=== PATIENT | male | born 1940 | race Caucasian/White ===

== ENCOUNTER → 2017-01-22 | Outpatient (CLI) | payer MEDICARE ==
--- NOTE | 2017-01-23 09:01 | XR ---
EXAMINATION TYPE: XR chest 2V DATE OF EXAM: 01/22/2017 9:44 AM COMPARISON: Prior chest x-ray 14 July 2014 HISTORY: Cough and congestion TECHNIQUE: Frontal and lateral views of the chest are obtained. FINDINGS: There is no pleural effusion, or pneumothorax seen. The cardiac silhouette size is within normal limits. Minimal strand-like densities at the lung bases are again noted and may reflect scar ring rather than atelectasis. There is some patchy increased density at the posterior costophrenic an gle, possibly right lower lobe. Prominent lung volumes suggests underlying COPD. The osseous structur es are intact. IMPRESSION: Findings suggest right lower lobe pneumonia. Follow-up to resolution.
== END | disposition home or self-care (01) ==
LOC: RADXRYALE 09:32
PROVIDERS: ATTEND Internal Medicine
DX: R05 Cough (principal)
CPT/HCPCS: 71020

== ENCOUNTER → 2023-03-12 | Outpatient (CLI) | payer MEDICARE ==
--- NOTE | 2023-03-14 09:36 | MR ---
EXAMINATION TYPE: MR Prostate wo/w con DATE OF EXAM: 03/12/2023 9:54 AM COMPARISON: None. CLINICAL INDICATION:Male, 82 years old with history of R97.20 ELEVATED PSA; TECHNIQUE: Multi-planar, multi-sequence imaging of the pelvis is performed prior to and following the uncomplicated administration of bolus intravenous gadolinium. CONTRAST: 8.5 Gadavist Interpretive Criteria: PI-RADS v2.1 SERUM PSA: 8.9 on 02/04/2023. 2.57 on 12/24/2022. SURGICAL PATHOLOGY: No data available. FINDINGS: Prostatic dimensions: 6.3 x 5.5 x 5.3 cm. Ellipsoid Volume:96.16 (PSA density=0.09 ng/mL/mL) CENTRAL GLAND (Central and Transition Zones/CZ+TZ): Multiple bilateral, heterogenous appearing hypertrophic stromal nodules, without suspicious lesion. M edian lobe hypertrophy with protrusion into the base of the bladder. (PI-RADS 2) PERIPHERAL ZONE (PZ): Limited evaluation of the posterior prostate gland on diffusion-weighted imaging secondary to gas wit hin the rectum. Atrophic and thin peripheral gland secondary to hypertrophic central gland. No eviden ce of masslike abnormality, or localized perfusional hypervascularity, to further suggest a focus of clinically significant prostate cancer. (PI-RADS 2) SEMINAL VESICLES (SV): Symmetric and unremarkable. PERIPROSTATIC TISSUES: Unremarkable. LYMPH NODES: No enlarged pelvic lymph node. REMAINING PELVIS: Trabeculated bladder wall likely secondary to chronic bladder outlet obstruction. No abnormal free or organized intrapelvic fluid collection. No pathologic bowel dilation or mural thickening. Left fat-containing inguinal hernia. Clonic diverticula are seen in the sigmoid colon. OSSEOUS STRUCTURES: No suspicious osseous abnormality. IMPRESSION: 1. No specific features for high-risk prostate cancer. Maximum PI-RADS score: 2. 2. Substantial BPH, estimated gland volume 96.16 mL.
== END | disposition home or self-care (01) ==
LOC: RADMRIMAIN 08:33
PROVIDERS: ATTEND Urology
DX: N40.0 Benign prostatic hyperplasia without lower urinary tract symptoms (principal); R97.20 Elevated prostate specific antigen [PSA]
CPT/HCPCS: 72197; A9585

== ENCOUNTER → 2024-01-04 | Outpatient (CLI) | payer MEDICARE | END | disposition home or self-care (01) | LOC: LABWHC1 15:35 | PROVIDERS: ATTEND Internal Medicine | DX: E83.52 Hypercalcemia (principal) | CPT/HCPCS: 36415; 82330; 83970 ==

== ENCOUNTER 2025-05-05 09:50 | Observation (INO) | payer MEDICARE ==
--- NOTE | 2025-05-05 10:21 | ED ---
General Adult HPI - General Chief complaint: Neuro Symptoms/Deficit Stated complaint: face drooping Time Seen by Provider: 05/05/25 10:04 Source: patient, family, RN notes reviewed Mode of arrival: ambulatory Limitations: no limitations - History of Present Illness Initial comments: Patient is an 84-year-old male present to the emergency department with concern for left-sided weakness. Patient was already awake when symptoms started. Onset of symptoms was around 815. Patient had left-sided face and arm weakness. Patient did stumble a little bit with presumed left leg weakness. Patient did seem a little bit confused. Symptom resolved and under 30 minutes and patient is symptom-free at this time. No headache. Patient denies confusion. - Related Data Home Medications Medication Instructions Recorded Confirmed Aspirin 81 mg PO DAILY 07/14/14 05/05/25 Losartan/Hydrochlorothiazide 1 tab PO DAILY 07/14/14 05/05/25 [Losartan-Hctz 100-25 mg Tab] Multivitamin/Iron/Folic Acid 1 tab PO DAILY 07/14/14 05/05/25 [Centrum Complete Multivit Tab] Simvastatin [Zocor] 40 mg PO HS 07/14/14 05/05/25 Fish Oil/Dha/Epa [Fish Oil 1,200 1 cap PO BID 05/05/25 05/05/25 mg Fish Oil] Glucosam/Chond/Hyalu/Cf Borate 1 tab PO BID 05/05/25 05/05/25 [Move Free Joint Health Tablet] Naproxen Sodium [Aleve] 220 mg PO DAILY 05/05/25 05/05/25 Allergies Allergy/AdvReac Type Severity Reaction Status Date / Time bacitracin Allergy Rash/Hives Verified 05/05/25 12:00 [From Neosporin ([id number])] Iodinated Contrast Media Allergy Unknown Verified 05/05/25 12:00 iodine Allergy Unknown Verified 05/05/25 12:00 neomycin Allergy Rash/Hives Verified 05/05/25 12:00 [From Neosporin ([id number])] polymyxin B Allergy Rash/Hives Verified 05/05/25 12:00 [From Neosporin ([id number])] Review of Systems ROS Statement: Those systems with pertinent positive or pertinent negative responses have been documented in the HPI. ROS Other: All systems not noted in ROS Statement are negative. Constitutional: Denies: fever Eyes: Denies: eye pain ENT: Denies: ear pain Respiratory: Denies: dyspnea Cardiovascular: Denies: chest pain Endocrine: Denies: fatigue Gastrointestinal: Denies: abdominal pain Musculoskeletal: Denies: back pain Neurological: Reports: as per HPI, weakness, confusion. 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 History of Any Multi-Drug Resistant Organisms: None Reported Past Surgical History: Hernia Repair Past Anesthesia/Blood Transfusion Reactions: No Reported Reaction Past Psychological History: No Psychological Hx Reported Smoking Status: Current every day smoker Past Alcohol Use History: Rare Past Drug Use History: None Reported - Past Family History Father Family Medical History: CVA/TIA Additional Family Medical History / Comment(s): AT AGE 88- STROKE Mother Family Medical History: Diabetes Mellitus, Hypertension, Myocardial Infarction ([place]) Additional Family Medical History / Comment(s): AT AGE 99- CARDIAC General Exam Limitations: no limitations General appearance: alert, in no apparent distress Head exam: Present: atraumatic, normocephalic Eye exam: Present: normal appearance, PERRL, EOMI ENT exam: Present: normal oropharynx Neck exam: Present: normal inspection Respiratory exam: Present: normal lung sounds bilaterally Cardiovascular Exam: Present: regular rate, normal rhythm GI/Abdominal exam: Present: soft. Absent: tenderness Extremities exam: Present: normal inspection. Absent: pedal edema, calf tenderness Neurological exam: Present: alert, CN II-XII intact. Absent: motor sensory deficit Expanded Neurological exam: Present: protecting the airway Patient oriented to: Present: person, place. Absent: time (States April 2024) Cranial nerves: EOM's Intact: Normal, Facial Sensation: Normal Sensory exam: Upper Extremity Light Touch: Normal, Lower Extremity Light Touch: Normal Motor strength exam: RUE: 5, LUE: 5, RLE: 5, LLE: 5 Eye Response: (4) open spontaneously Motor Response: (6) obeys commands Verbal Response: (4) confused conversation Psychiatric exam: Present: normal affect, normal mood Skin exam: Present: normal color Course Vital Signs 05/05/25 05/05/25 05/05/25 10:01 10:33 10:48 Temperature 97.2 F L 97.6 F Pulse Rate 61 60 59 L Respiratory 18 16 18 Rate Blood Pressure 140/68 134/64 155/71 O2 Sat by Pulse 98 97 100 Oximetry 05/05/25 05/05/25 05/05/25 11:33 11:48 12:05 Temperature 97.4 F L 97.6 F Pulse Rate 59 L 57 L 60 Respiratory 16 18 18 Rate Blood Pressure 151/70 139/74 149/75 O2 Sat by Pulse 95 96 97 Oximetry 05/05/25 05/05/25 05/05/25 12:20 12:54 13:03 Temperature 97.6 F Pulse Rate 62 66 60 Respiratory 22 18 16 Rate Blood Pressure 151/73 148/71 152/72 O2 Sat by Pulse 95 98 96 Oximetry 05/05/25 05/05/25 13:15 14:15 Temperature Pulse Rate 60 61 Respiratory 16 20 Rate Blood Pressure 133/68 O2 Sat by Pulse 96 95 Oximetry EKG Findings - EKG Results: EKG: interpreted by ERMD, sinus rhythm, normal axis, normal QRS, normal ST/T EKG shows: bradycardia Medical Decision Making - Medical Decision Making Was pt. sent in by a medical professional or institution (, PA, ENVIRONMENTAL COMMUNICATIONS SPECIALIST, urgent care, hospital, or senior living...) When possible be specific @ -No Did you speak to anyone other than the patient for history (EMS, parent, family, police, friend...)? What history was obtained from this source @ -Son is present and helps provide history including patient's symptoms and resolution of symptoms Did you review nursing and triage notes (agree or disagree)? Why? @ -I reviewed and agree with nursing and triage notes Were old charts reviewed (outside hosp., previous admission, EMS record, old EKG, old radiological studies, urgent care reports/EKG's, senior living records)? Report findings @ -No old charts were reviewed Differential Diagnosis (chest pain, altered mental status, abdominal pain women, abdominal pain men, vaginal bleeding, weakness, fever, dyspnea, syncope, headache, dizziness, GI bleed, back pain, seizure, CVA, palpatations, mental health, musculoskeletal)? @ -Differential Weakness: Hypoglycemia, shock, sepsis, hyponatremia, anemia, infection, DE, ETOH, adverse medicine reaction, overdose, stroke, this is not meant to be an all-inclusive list. EKG interpreted by me (3pts min.). @ -As above X-rays interpreted by me (1pt min.). @ -Chest x-ray does not reveal acute abnormality CT interpreted by me (1pt min.). @ -CT scan of the brain without acute abnormality. Chronic changes U/S interpreted by me (1pt. min.). @ -None done What testing was considered but not performed or refused? (CT, X-rays, U/S, labs)? Why? @ -None What meds were considered but not given or refused? Why? @ -None Did you discuss the management of the patient with other professionals (professionals i.e. , PA, ENVIRONMENTAL COMMUNICATIONS SPECIALIST, lab, RT, psych nurse, social security assessor, gallery intern, teacher, parachute/combatant diver officer, special education case manager)? Give summary @ -Case was discussed with Dr. Zavala with neurology who will consult. Case also discussed with Dr. Hayes. Case also discussed with Dr. Boles who will admit covering Dr. Morrison Was smoking cessation discussed for >3mins.? @ -No Was critical care preformed (if so, how long)? @ -No Were there social determinants of health that impacted care today? How? (Homelessness, low income, unemployed, alcoholism, drug addiction, transportation, low edu. Level, literacy, decrease access to med. care, nursing home, rehab)? @ -No Was there de-escalation of care discussed even if they declined (Discuss DNR or withdrawal of care, Hospice)? DNR status @ -No What co-morbidities impacted this encounter? (DM, HTN, Smoking, COPD, CAD, Cancer, CVA, ARF, Chemo, Hep., AIDS, mental health diagnosis, sleep apnea, morbid obesity)? @ -None Was patient admitted / discharged? Hospital course, mention meds given and route, prescriptions, significant lab abnormalities, going to OR and other pertinent info. @ -Patient presents with symptoms of stroke, resolved. Patient reevaluated and still symptom-free. Patient and family updated on results and plan. Patient will be admitted with neuro consult. Admission orders written. Undiagnosed new problem with uncertain prognosis? @ -No Drug Therapy requiring intensive monitoring for toxicity (Heparin, Nitro, Insulin, Cardizem)? @ -No Were any procedures done? @ -No Diagnosis/symptom? @ -TIA Acute, or Chronic, or Acute on Chronic? @ -Acute Uncomplicated (without systemic symptoms) or Complicated (systemic symptoms)? @ -Default Side effects of treatment? @ -No Exacerbation, Progression, or Severe Exacerbation? @ -No Poses a threat to life or bodily function? How? (Chest pain, [place], DE, pneumonia, PE, COPD, DKA, ARF, appy, cholecystitis, CVA, Diverticulitis, Homicidal, Suicidal, threat to staff... and all critical care pts) @ -Threat to neurological function - Lab Data Result diagrams: 05/05/25 10:17 05/05/25 11:40 Lab Results 05/05/25 05/05/25 05/05/25 Range/Units 10:17 10:17 11:40 WBC 7.12 (4.50-10.00) 10*3/uL RBC 4.32 L (4.40-5.60) 10*6/uL Hgb 14.0 (13.0-17.0) g/dL Hct 40.5 (39.6-50.0) % MCV 93.8 (80.0-97.0) fL MCH 32.4 H (27.0-32.0) pg MCHC 34.6 (32.0-37.0) g/dL Plt Count 136 L (140-440) 10*3/uL MPV 9.6 (9.5-12.2) fL Immature Gran % (Auto) 0.4 % Neutrophils % 60.6 % Lymphocytes % 24.7 % Monocytes % 9.4 % Eosinophils % 4.5 % Basophils % 0.4 % Immature Gran # 0.03 (0.00-0.04) 10*3/uL Neutrophils # 4.31 (1.80-7.70) 10*3/uL Lymphocytes # 1.76 (0.90-5.00) 10*3/uL Monocytes # 0.67 (0.20-1.00) 10*3/uL Eosinophils # 0.32 (0.04-0.35) 10*3/uL Basophils # 0.03 (0.00-0.10) 10*3/uL Immature Plt Fraction 2.4 (1.1-6.1) % PT 10.2 (10.0-12.5) sec INR 0.9 (<1.2) APTT 25.6 (22.0-30.0) sec Sodium 138 (137-145) mmol/L Potassium 4.0 (3.5-5.1) mmol/L Chloride 102 (98-107) mmol/L Carbon Dioxide 25 (22-30) mmol/L Anion Gap 11 mmol/L BUN 13 (9-20) mg/dL Creatinine 0.74 (0.66-1.25) mg/dL Est GFR (CKD-EPI)AfAm >90 (>60 ml/min/1.73 sqM) Est GFR (CKD-EPI)NonAf 85 (>60 ml/min/1.73 sqM) Glucose 99 (74-99) mg/dL Calcium 10.0 (8.4-10.2) mg/dL Total Bilirubin 0.9 (0.2-1.3) mg/dL AST 28 (17-59) U/L ALT 20 (4-49) U/L Alkaline Phosphatase 73 (38-126) U/L Creatine Kinase 74 (55-170) U/L Total Protein 7.1 (6.3-8.2) g/dL Albumin 4.4 (3.5-5.0) g/dL Disposition Clinical Impression: Transient cerebral ischemia Disposition: ADMITTED IP TO THIS HOSP Is patient prescribed a controlled substance at d/c from ED?: No Referrals: Sujatha Morrison MD [Primary Care Provider] - 1-2 days Time of Disposition: 14:26
[2025-05-05 10:41] LABS: Basophils # (A) 0.03 10*3/uL (0.00-0.10); Basophils % (A) 0.4 %; Eosinophils # (A) 0.32 10*3/uL (0.04-0.35); Eosinophils % (A) 4.5 %; HCT 40.5 % (39.6-50.0); Immature Platelet Fraction 2.4 % (1.1-6.1); Lymphocytes # (A) 1.76 10*3/uL (0.90-5.00); Lymphocytes % (A) 24.7 %; MCH 32.4 pg (27.0-32.0); MCHC 34.6 g/dL (32.0-37.0); MCV 93.8 fL (80.0-97.0); Mean Platelet Volume 9.6 fL (9.5-12.2); Monocytes # (A) 0.67 10*3/uL (0.20-1.00); Monocytes % (A) 9.4 %; Neutrophils # (A) 4.31 10*3/uL (1.80-7.70); Neutrophils % (A) 60.6 %; Platelet Count 136 10*3/uL (140-440); RBC 4.32 10*6/uL (4.40-5.60); WBC 7.12 10*3/uL (4.50-10.00)
[2025-05-05] MEDS: diphenhydrAMINE 50 MG/ML 1 ML VIAL IVP STA (10:42)
[2025-05-05] MEDS: FAMOTIDINE 20 MG/2 ML VIAL IV STA (10:44)
[2025-05-05] MEDS: methylPREDNISolone SOD SUCCI 125 MG/2 ML VIAL IV STA (10:45)
[2025-05-05 11:12] LABS: INR 0.9 (<1.2); Partial Thromboplastin Time 25.6 sec (22.0-30.0); Prothrombin Time 10.2 sec (10.0-12.5)
--- NOTE | 2025-05-05 11:19 | XR ---
EXAMINATION TYPE: XR chest 2V DATE OF EXAM: 05/05/2025 CLINICAL INDICATION: Male, 84 years old with history of altered mental status, TECHNIQUE: Frontal and lateral views of the chest are obtained. COMPARISON: Chest x-ray January 22, 2017 FINDINGS: There is no focal air space opacity, pleural effusion, or pneumothorax seen. The cardiac silhouette size is stable and within normal limits. The osseous structures are intact. IMPRESSION: No acute cardiopulmonary process. [facility], , 05/05/2025 11:17 AM
--- NOTE | 2025-05-05 11:24 | CT ---
EXAMINATION TYPE: CT brain wo con DATE OF EXAM: 05/05/2025 11:03 AM COMPARISON: No prior films at this location. CLINICAL INDICATION: Male, 84 years old with history of Neuro deficit, acute, stroke suspected, This morning around 0815 had symptoms of left facial droop and left arm weakness that lasted approx 30 min utes and then symptoms resolved. Pt has no active symptoms. TECHNIQUE: CT of the brain is performed utilizing 3 mm thick sections through the posterior fossa and 3 mm thick sections through the remaining calvarium. Study is performed within 24 hours of arrival to the hospital. Contrast used: mL of , (none if empty) CT DLP: 1145.6 mGycm, Automated exposure control for dose reduction was used. FINDINGS: No abnormal hyperdensity is present to suggest an acute intracranial hemorrhage. No mass lesion is evident. No acute infarcts are evident. Mild periventricular white matter hypodensity is present, likely on th e basis of chronic white matter ischemic changes. Old lacunar infarct is in the right knight radiata Ventricles and sulci are prominent for the patient age. Paranasal sinuses and mastoid air cells within the [id number] are clear. IMPRESSION: 1. No acute intracranial process. Follow up MRI can be performed as clinically indicated. 2. Chronic appearing periventricular white matter ischemic type changes. 3. 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
--- NOTE | 2025-05-05 11:45 | CT ---
EXAMINATION TYPE: CT angio head neck DATE OF EXAM: 05/05/2025 11:18 AM COMPARISON: None. CLINICAL INDICATION: Male, 84 years old with history of Neuro deficit, acute, stroke suspected, This morning around 0815 had symptoms of left facial droop and left arm weakness that lasted approx 30 min utes and then symptoms resolved. Pt has no active symptoms. TECHNIQUE: CTA scan is performed with axial images are obtained, coronal and sagittal reformatted monica ges are reviewed. MIP images created on a separate workstation and submitted for review. 3-D reconstr ucted images are created on an independent workstation and reviewed. Source images are reviewed. HA CET criteria was used in interpretation of this exam? Contrast used:65 ml mL of Isovue 370 with IV Contrast, (none if empty) Oral contrast used: (none if empty) CT DLP: 461.9 mGycm, Automated exposure control for dose reduction was used. FINDINGS: Carotid/Vascular Structures: There is a 3 vessel arch. Common carotid arteries bifurcate into internal and external carotid arteries without significant cory w limiting stenosis. Calcified plaquing is present at the bifurcations. Vertebral artery is dominant. Right vertebral artery is patent to the skull base.. Internal carotid arteries and vertebral arteries are patent to the skull base. Cervical of [place]: Left vertebral artery appears to terminate in the PICA. Posterior cerebral vascul ature is unremarkable. Internal carotid arteries bifurcate normally into A1 and M1 segments. A2 segme nts are normal. The anterior communicating artery may be very small. The right posterior communicating artery is patent. The left posterior communicating artery is absent. IMPRESSION: 1. No flow-limiting stenosis bilateral carotid bifurcations. 2. Normal [place] [facility], , 05/05/2025 11:43 AM
[2025-05-05 12:16] LABS: ALT 20 U/L (4-49); African American GFR (CKD) >90 (>60 ml/min/1.73 sqM); Albumin 4.4 g/dL (3.5-5.0); Anion Gap 11 mmol/L; Blood Urea Nitrogen 13 mg/dL (9-20); Carbon Dioxide 25 mmol/L (22-30); Chloride 102 mmol/L (98-107); Creatine Kinase 74 U/L (55-170); Glucose 99 mg/dL (74-99); Non-African American GFR(CKD) 85 (>60 ml/min/1.73 sqM); Sodium 138 mmol/L (137-145); Total Bilirubin 0.9 mg/dL (0.2-1.3); Total Protein 7.1 g/dL (6.3-8.2)
[2025-05-05 13:07] LABS: AST 28 U/L (17-59); Alkaline Phosphatase 73 U/L (38-126)
[2025-05-05] MEDS ORDERED: ACETAMINOPHEN TAB 325 MG TAB PO PRN (13:10)
[2025-05-05] MEDS ORDERED: NALOXONE 0.4 MG/ML 1 ML VIAL IV PRN (13:10)
--- NOTE | 2025-05-05 13:16 | P.HPIM ---
History of Present Illness H&P Date: 05/05/25 History of present illness; patient 84-year-old gentleman with past medical history significant for hypertension, hyperlipidemia who presented the ER for left-sided weakness. Patient was all right this morning according to the and he woke up in her normal state of health. While walking across the kitchen, patient stumble and the noticed that he had left facial droop and was also weak on the left side. There was no complaint of fall. Patient did not lose any consciousness. There was no complaint of any loss of fecal or urine continence. There was no complaint of any jerking movement of any extremity. immediately called patient's son and they brought him to the ER Initial lab work done in the ER showed 7.12, hemoglobin 14, platelet count 136, sodium 138, potassium 4, BUN 13, creatinine 0.74, glucose 99, calcium 910, AST 20, ALT 20 EKG done in the ER showed heart rate of 59, no ST segment elevation or depression seen, no T-wave inversions seen. Chest x-ray done in the ER no acute pulmonary process CT head done showed no acute intracranial process, chronic appearing periventricular white matter ischemic type changes CTA head and neck done showed no evidence of of dissection of the cervical internal carotid arteries or vertebral arteries, no evidence of significant stenosis at the carotid bifurcations, no evidence of intracranial high-grade stenosis or aneurysm At the time of my examination, patient symptom resolved. Patient admitted to internal medicine service REVIEW OF SYSTEMS: CONSTITUTIONAL: No fever, no malaise, no fatigue. HEENT: No recent visual problems or hearing problems. Denied any sore throat. CARDIOVASCULAR: No chest pain, orthopnea, PND, no palpitations, no syncope. PULMONARY: No shortness of breath, no cough, no hemoptysis. GASTROINTESTINAL: No diarrhea, no nausea, no vomiting, no abdominal pain. NEUROLOGICAL: As mentioned above HEMATOLOGICAL: Denies any bleeding or petechiae. GENITOURINARY: Denies any burning micturition, frequency, or urgency. MUSCULOSKELETAL/RHEUMATOLOGICAL: Denies any joint pain, swelling, or any muscle pain. ENDOCRINE: Denies any polyuria or polydipsia. The rest of the 14-point review of systems is negative. PHYSICAL EXAMINATION: GENERAL: The patient is alert and oriented x3, not in any acute distress. Well developed, well nourished. HEENT: Pupils are round and equally reacting to light. EOMI. No scleral icterus. No conjunctival pallor. Normocephalic, atraumatic. No pharyngeal erythema. No thyromegaly. CARDIOVASCULAR: S1 and S2 present. No murmurs, rubs, or gallops. PULMONARY: Chest is clear to auscultation, no wheezing or crackles. ABDOMEN: Soft, nontender, nondistended, normoactive bowel sounds. No palpable organomegaly. MUSCULOSKELETAL: No joint swelling or deformity. EXTREMITIES: No cyanosis, clubbing, or pedal edema. NEUROLOGICAL: Gross neurological examination did not reveal any focal deficits. SKIN: No rashes. Assessment and plan TIA History of hypertension History hyperlipidemia Monitor vital signs Monitor CBC Monitor CMP Continue telemetry monitoring Ordered neurochecks Ordered lipid panel Order HbA1c level Ordered 2D echo Start aspirin Resume home meds Consult PT and OT Consult neurology Labs and medication were reviewed.. Continue same treatment. Continue with symptomatic treatment. Resume home medication. Monitor labs and vitals. DVT and GI prophylaxis. Further recommendations as per clinical course of the patient Dictation was produced using [employer] dictation software. please excuse any grammatical, word or spelling errors. 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 History of Any Multi-Drug Resistant Organisms: None Reported Past Surgical History: Hernia Repair Past Anesthesia/Blood Transfusion Reactions: No Reported Reaction Past Psychological History: No Psychological Hx Reported Smoking Status: Current every day smoker Past Alcohol Use History: Rare Past Drug Use History: None Reported - Past Family History Father Family Medical History: CVA/TIA Additional Family Medical History / Comment(s): AT AGE 88- STROKE Mother Family Medical History: Diabetes Mellitus, Hypertension, Myocardial Infarction ([place]) Additional Family Medical History / Comment(s): AT AGE 99- CARDIAC Medications and Allergies Home Medications Medication Instructions Recorded Confirmed Type Aspirin 81 mg PO DAILY 07/14/14 05/05/25 History Losartan/Hydrochlorothiazide 1 tab PO DAILY 07/14/14 05/05/25 History [Losartan-Hctz 100-25 mg Tab] Multivitamin/Iron/Folic Acid 1 tab PO DAILY 07/14/14 05/05/25 History [Centrum Complete Multivit Tab] Simvastatin [Zocor] 40 mg PO HS 07/14/14 05/05/25 History Fish Oil/Dha/Epa [Fish Oil 1,200 1 cap PO BID 05/05/25 05/05/25 History mg Fish Oil] Glucosam/Chond/Hyalu/Cf Borate 1 tab PO BID 05/05/25 05/05/25 History [Move Free Joint Health Tablet] Naproxen Sodium [Aleve] 220 mg PO DAILY 05/05/25 05/05/25 History Allergies Allergy/AdvReac Type Severity Reaction Status Date / Time bacitracin Allergy Rash/Hives Verified 05/05/25 12:00 [From Neosporin ([id number])] Iodinated Contrast Media Allergy Unknown Verified 05/05/25 12:00 iodine Allergy Unknown Verified 05/05/25 12:00 neomycin Allergy Rash/Hives Verified 05/05/25 12:00 [From Neosporin ([id number])] polymyxin B Allergy Rash/Hives Verified 05/05/25 12:00 [From Neosporin ([id number])] Physical Exam Vitals: Vital Signs Temp Pulse Resp BP Pulse Ox 05/05/25 12:54 66 18 148/71 98 05/05/25 12:20 62 22 151/73 95 05/05/25 12:05 97.6 F 60 18 149/75 97 05/05/25 11:48 57 L 18 139/74 96 05/05/25 11:33 97.4 F L 59 L 16 151/70 95 05/05/25 10:48 59 L 18 155/71 100 05/05/25 10:33 97.6 F 60 16 134/64 97 05/05/25 10:01 97.2 F L 61 18 140/68 98 Intake and Output 05/04/25 05/05/25 05/05/25 22:59 06:59 14:59 Other: Weight 72.575 kg Results CBC & Chem 7: 05/05/25 10:17 05/05/25 11:40 Labs: Abnormal Lab Results - Last 24 Hours (Table) 05/05/25 Range/Units 10:17 RBC 4.32 L (4.40-5.60) 10*6/uL MCH 32.4 H (27.0-32.0) pg Plt Count 136 L (140-440) 10*3/uL
[2025-05-05] MEDS: ASPIRIN 325 MG TAB PO STA (14:40)
[2025-05-05] MEDS: SODIUM CHLORIDE 0.9% 1,000 ML IV SCH (14:41)
[2025-05-05] MEDS: HEPARIN SODIUM,PORCINE 5,000 UNIT/ML 1 ML VIAL SQ SCH (15:31)
--- NOTE | 2025-05-05 17:31 | P.CNNES ---
History of Present Illness Consult date: 05/05/25 Requesting physician: Lexx Goldman Reason for Consult: tia History of Present Illness: This is an 84-year-old gentleman who presents to the emergency department because of left facial droop, could not speak. Patient and children are at bedside who provides some of the history. Seems that around 8 to 8:15 AM today patient was unsteady walking lost his balance and he could not speak and his left facial droop as well as left arm. He continues to have left facial droopiness. Prior to 8:00 he was doing well according to the . He does have a prior stroke about 13 years ago and he had similar presentation which resolved. He is on aspirin 81 mg daily. He is also on simvastatin. He has history of hypertension he is on medication. He smokes about 3 packs a day according to his son. No alcohol or no illicit drug use. Some of the workup during this hospital visit consisted of: I reviewed the lab workup CT of the head is reported as no acute intracranial process. 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 I personally reviewed the CT and I agree with the report. CT angiography of the head and neck is reported as no flow-limiting stenosis bilateral carotid bifurcation. Normal [place] [facility] [place]. Review of Systems As per HPI. 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 History of Any Multi-Drug Resistant Organisms: None Reported Past Surgical History: Hernia Repair Past Anesthesia/Blood Transfusion Reactions: No Reported Reaction Past Psychological History: No Psychological Hx Reported Smoking Status: Current every day smoker Past Alcohol Use History: Rare Past Drug Use History: None Reported - Past Family History Father Family Medical History: CVA/TIA Additional Family Medical History / Comment(s): AT AGE 88- STROKE Mother Family Medical History: Diabetes Mellitus, Hypertension, Myocardial Infarction (PR) Additional Family Medical History / Comment(s): AT AGE 99- CARDIAC Medications and Allergies Home Medications Medication Instructions Recorded Confirmed Type Aspirin 81 mg PO DAILY 07/14/14 05/05/25 History Losartan/Hydrochlorothiazide 1 tab PO DAILY 07/14/14 05/05/25 History [Losartan-Hctz 100-25 mg Tab] Multivitamin/Iron/Folic Acid 1 tab PO DAILY 07/14/14 05/05/25 History [Centrum Complete Multivit Tab] Simvastatin [Zocor] 40 mg PO HS 07/14/14 05/05/25 History Fish Oil/Dha/Epa [Fish Oil 1,200 1 cap PO BID 05/05/25 05/05/25 History mg Fish Oil] Glucosam/Chond/Hyalu/Cf Borate 1 tab PO BID 05/05/25 05/05/25 History [Move Free [employer] Tablet] Naproxen Sodium [Aleve] 220 mg PO DAILY 05/05/25 05/05/25 History Allergies Allergy/AdvReac Type Severity Reaction Status Date / Time bacitracin Allergy Rash/Hives Verified 05/05/25 12:00 [From Neosporin ([id number])] Iodinated Contrast Media Allergy Unknown Verified 05/05/25 12:00 iodine Allergy Unknown Verified 05/05/25 12:00 neomycin Allergy Rash/Hives Verified 05/05/25 12:00 [From Neosporin ([id number])] polymyxin B Allergy Rash/Hives Verified 05/05/25 12:00 [From Neosporin ([id number])] Physical Examination - Vital Signs Vital Signs: Vital Signs Temp Pulse Resp BP Pulse Ox 05/05/25 17:14 74 18 147/75 95 05/05/25 14:15 61 20 133/68 95 05/05/25 13:15 60 16 96 05/05/25 13:03 97.6 F 60 16 152/72 96 05/05/25 12:54 66 18 148/71 98 05/05/25 12:20 62 22 151/73 95 05/05/25 12:05 97.6 F 60 18 149/75 97 05/05/25 11:48 57 L 18 139/74 96 05/05/25 11:33 97.4 F L 59 L 16 151/70 95 05/05/25 10:48 59 L 18 155/71 100 05/05/25 10:33 97.6 F 60 16 134/64 97 05/05/25 10:01 97.2 F L 61 18 140/68 98 Intake and Output 05/05/25 05/05/25 05/05/25 06:59 14:59 22:59 Other: Weight 72.575 kg GENERAL: The patient is lying in bed and is not in acute distress. NEUROLOGICAL: Higher mental function: The patient is awake, alert, oriented to self, place and time. Patient is following commands. No aphasia and no neglect. Cranial nerves: The pupils are round, equal and reactive to light and accommodation. Visual armenta are full to confrontation throughout. Extraocular movement is intact no nystagmus is noted. Facial sensation is normal to touch throughout. The facial strength is left lower facial weakness. Hearing is severely decreased bilaterally to hand rub (chronic). Tongue is midline and moved [id number] without any difficulty. No dysarthria is noted. Shoulder shrug is normal bilaterally. Motor: The strength is 5 over 5 throughout. Normal tone and bulk. Cerebellum: Normal finger to nose bilaterally. Sensation: Sensation is normal to touch throughout. Results - Laboratory Findings CBC and BMP: 05/05/25 10:17 05/05/25 11:40 Abnormal Lab Findings: Abnormal Labs 05/05/25 10:17 RBC 4.32 L MCH 32.4 H Plt Count 136 L Assessment and Plan Assessment: This is an 84-year-old gentleman who presents emergency department because of speech difficulty left facial droop and left arm weakness. Symptoms began around 8:00 in the morning and prior to that he was doing well. Likely acute ischemic stroke since the patient continues to have left facial droop. Patient has multiple risk factor such as hypertension, prior stroke, age and his significant nicotine use in which he smokes about 3 packs/day Hypertension History of prior stroke about 13 years ago and on the CT it seems that the patient has old lacunar on the right knight radiata Significant nicotine use (smoke 3PPD) Plan: Patient was given aspirin 325 once and resumed on his home dose of aspirin 81 mg daily. In addition I start the patient on Plavix 75 mg daily. He was started on Lipitor 20 mg nightly by the primary team I ordered MRI of the brain. Lipid panel, hemoglobin A1c, 2D echo are ordered and pending Continue neurochecks Cardiac monitoring PT OT and GETTERING FILAMENT MACHINE OPERATOR are consulted Patient was counseled on tobacco cessation For the rest of the medical management the primary team. For DVT prophylaxis the patient is on subcu heparin Thank you for the consultation. Time with Patient: Greater than 30
[2025-05-05] MEDS: CLOPIDOGREL 75 MG TAB PO SCH (18:00)
[2025-05-05] MEDS ORDERED: NON FORMULARY DRUG (Fish Oil/Dha/Epa [Fish Oil 1,200 Mg Fish Oil] 1 EACH Capsule) PO SCH (21:00)
[2025-05-05] MEDS: ATORVASTATIN 20 MG TAB PO SCH (21:08)
[2025-05-06] MEDS: LOSARTAN-HCTZ 50-12.5 MG 1 EACH TAB PO SCH (09:16)
[2025-05-06] MEDS: ASPIRIN 81 MG PO SCH (09:16)
[2025-05-06 09:17] LABS: Basophils # (A) 0.01 X 10*3/uL (0.00-0.10); Basophils % (A) 0.1 %; Eosinophils # (A) 0 X 10*3/uL (0.04-0.35); Eosinophils % (A) 0 %; HCT 39.2 % (39.6-50.0); HGB 12.9 g/dL (13.0-17.0); Lymphocytes # (A) 1.22 X 10*3/uL (0.90-5.00); Lymphocytes % (A) 10.6 %; MCH 30.9 pg (27.0-32.0); MCHC 32.9 g/dL (32.0-37.0); Mean Platelet Volume 10.5 FL (9.5-12.2); Monocytes # (A) 0.66 X 10*3/uL (0.20-1.00); Monocytes % (A) 5.7 %; NRBC Per 100 WBC 0 X 10*3/uL (0.00-0.01); Neutrophils # (A) 9.56 X 10*3/uL (1.80-7.70); Neutrophils % (A) 82.9 %; Platelet Count 163 X 10*3/uL (140-440); RBC 4.17 X 10*6/uL (4.40-5.60); RDW 13.1 % (11.5-14.5); WBC 11.53 X 10*3/uL (4.50-10.00)
[2025-05-06 09:23] LABS: ALT 16 U/L (10-49); AST 18 U/L (14-35); Albumin 4.1 g/dL (3.8-4.9); Albumin/Globulin Ratio 2.05 Ratio (1.60-3.17); Alkaline Phosphatase 62 U/L (41-126); Blood Urea Nitrogen 18.9 mg/dL (9.0-27.0); Calcium 9.2 mg/dL (8.7-10.3); Carbon Dioxide 23.5 mmol/L (21.6-31.8); Chloride 104 mmol/L (96-109); Chol/HDL Ratio 1.92 Ratio; Glucose 132 mg/dL (70-110); LDL Cholesterol,Calculated 36.4 mg/dL (0.0-131.0); Potassium 3.9 mmol/L (3.5-5.5); Sodium 140 mmol/L (135-145); Total Bilirubin 0.2 mg/dL (0.3-1.2); Total Protein 6.1 g/dL (6.2-8.2); VLDL Calculation 11.06 mg/dL (5.00-40.00)
--- NOTE | 2025-05-06 12:32 | CA ---
Transthoracic Echo Report Name: Jaycob Rodríguez Age: 84 Gender: M : 1940 Exam Date: 05/05/2025 18:27 Exam Location: [place] [facility] Ht (in): 66 Wt (lb): 160 Ordering Physician: Lexx Goldman MD Attending/Referring Phys: Manager Of Manufacturing Pat Lui RDCS Procedure CPT: Indications: Slurred speech, CVA Cardiac Hx: Technical Quality: Fair Contrast 1: Total Dose (mL): Contrast 2: Total Dose (mL): MEASUREMENTS (Male / Female) Normal Values 2D ECHO LV Diastolic Diameter PLAX 4.4 cm 4.2 - 5.9 / 3.9 - 5.3 cm LV Systolic Diameter PLAX 2.7 cm IVS Diastolic Thickness 0.9 cm 0.6 - 1.0 / 0.6 - 0.9 cm LVPW Diastolic Thickness 1.0 cm 0.6 - 1.0 / 0.6 - 0.9 cm LV Relative Wall Thickness 0.5 RV Internal Dim ED PLAX 3.4 cm LA Systolic Diameter LX 3.3 cm 3.0 - 4.0 / 2.7 - 3.8 cm LV Diastolic Volume MOD 4C 100.0 cm??? LV Systolic Volume MOD 4C 52.8 cm??? LV Ejection Fraction MOD 4C 47.2 % LV Cardiac Index MOD 4C 1630.5 cm???/min???m??? LV Diastolic Length 4C 8.3 cm LV Systolic Length 4C 6.5 cm LV Diastolic Volume MOD 2C 118.0 cm??? LV Systolic Volume MOD 2C 51.5 cm??? LV Ejection Fraction MOD 2C 56.3 % LV Cardiac Index MOD 2C 2296.1 cm???/min???m??? LV Diastolic Length 2C 8.4 cm LV Systolic Length 2C 6.1 cm M-MODE Aortic Root Diameter MM 3.5 cm AV Cusp Separation MM 1.9 cm DOPPLER Mitral E Point Velocity 75.2 cm/s Mitral A Point Velocity 110.2 cm/s Mitral E to A Ratio 0.7 MV Deceleration Time 263.3 ms MV E' Velocity 7.8 cm/s Mitral E to MV E' Ratio 9.6 TR Peak Velocity 241.9 cm/s TR Peak Gradient 23.4 mmHg Right Ventricular Systolic Press 33.4 mmHg FINDINGS Left Ventricle Left ventricular ejection fraction is estimated at 50-55 %. Left ventricular cavity size normal. Left ventricular wall thickness normal. Basel inferior hypokinesis. Basel septal hypokinesis Right Ventricle Normal right ventricular size. Right ventricular systolic pressure within normal limits. Right Atrium Normal right atrial size. No right atrial thrombus or mass seen. Left Atrium Normal left atrial size. No left atrial thrombus or mass present. Mitral Valve Structurally normal mitral valve. Mild mitral regurgitation. No evidence for mitral valve prolapse. No mitral stenosis. Aortic Valve Trileaflet aortic valve. No aortic valve stenosis or regurgitation. Tricuspid Valve Structurally normal tricuspid valve. Mild tricuspid regurgitation. Pulmonic Valve Pulmonic valve not well visualized. No pulmonic regurgitation. Pericardium No pericardial effusion. Aorta Normal size aortic root and proximal ascending aorta. CONCLUSIONS LVEF 55% Basel inferior and inferoseptal hypokinesis. Mild mitral regurgitation Mild tricuspid regurgitation RVSP estimated at 33 mmHg Normal RV size and systolic function Previewed by: Dr Prabhjot Reno (Electronically Signed) Final Date: 06 May 2025 12:32
--- NOTE | 2025-05-06 16:10 | MR ---
EXAMINATION TYPE: MR brain wo con DATE OF EXAM: 05/06/2025 12:21 PM COMPARISON: None. CLINICAL INDICATION: Male, 84 years old with history of left facial droop. cva, left facial droop, cv a TECHNIQUE: Multiplanar, multiecho imaging on a 3.0 Korina magnet is performed through the brain. Stud y is performed within 24 hours of arrival to the hospital.Multiplanar, multiecho imaging on a 3.0 Joy la magnet is performed through the knee. IV Contrast: mL (None, if empty) FINDINGS: The craniovertebral junction is normal. The pituitary is normal. Diffusion-weighted imaging is performed. There is some very subtle hyperintensity surrounding hypoin tense area within the right knight radiata. Example image series 303 image [id number]. This could be rel ated to some leonor-infarct ischemia. Prior lacunar infarct within the right basal ganglia likely prese nt. There is some periventricular white matter hyperintensity greater into the frontal regions. Findings are nonspecific but can be related to chronic white matter ischemic change. Ventricles and sulci are prominent for the patient age. IMPRESSION: 1. Some subtle right knight radiata uptake may be some leonor-infarct ischemia. 2. Mild chronic appearing periventricular white matter ischemic-type changes. [facility], , 05/06/2025 4:07 PM
--- NOTE | 2025-05-06 19:34 | P.PN ---
Subjective Progress Note Date: 05/06/25 84-year-old gentleman with past medical history significant for hypertension, hyperlipidemia who presented the ER for left-sided weakness. Patient was all right this morning according to the and he woke up in her normal state of health. While walking across the kitchen, patient stumble and the noticed that he had left facial droop and was also weak on the left side. There was no complaint of fall. Patient did not lose any consciousness. There was no complaint of any loss of fecal or urine continence. There was no complaint of any jerking movement of any extremity. immediately called patient's son and they brought him to the ER Initial lab work done in the ER showed 7.12, hemoglobin 14, platelet count 136, sodium 138, potassium 4, BUN 13, creatinine 0.74, glucose 99, calcium 910, AST 20, ALT 20 EKG done in the ER showed heart rate of 59, no ST segment elevation or depressi on seen, no T-wave inversions seen. Chest x-ray done in the ER no acute pulmonary process CT head done showed no acute intracranial process, chronic appearing periventricular white matter ischemic type changes CTA head and neck done showed no evidence of of dissection of the cervical internal carotid arteries or vertebral arteries, no evidence of significant stenosis at the carotid bifurcations, no evidence of intracranial high-grade stenosis or aneurysm At the time of my examination, patient symptom resolved. Patient admitted to internal medicine service Objective - Vital Signs Vital signs: Vital Signs Temp 97.4 F L 05/06/25 07:00 Pulse 73 05/06/25 07:00 Resp 18 05/06/25 07:00 BP 134/70 05/06/25 07:00 Pulse Ox 94 L 05/06/25 07:00 FiO2 Intake & Output 05/05/25 05/06/25 05/06/25 18:59 06:59 18:59 Weight 72.575 kg 72.575 kg Other: Voiding Method Toilet # Voids 1 - Exam GENERAL: The patient is alert and oriented x3, not in any acute distress. Well developed, well nourished. HEENT: Pupils are round and equally reacting to light. EOMI. No scleral icterus. No conjunctival pallor. Normocephalic, atraumatic. No pharyngeal erythema. No thyromegaly. CARDIOVASCULAR: S1 and S2 present. No murmurs, rubs, or gallops. PULMONARY: Chest is clear to auscultation, no wheezing or crackles. ABDOMEN: Soft, nontender, nondistended, normoactive bowel sounds. No palpable organomegaly. MUSCULOSKELETAL: No joint swelling or deformity. EXTREMITIES: No cyanosis, clubbing, or pedal edema. NEUROLOGICAL: Gross neurological examination did not reveal any focal deficits. SKIN: No rashes. - Labs CBC & Chem 7: 05/06/25 05:38 05/06/25 05:38 Labs: Abnormal Lab Results - Last 24 Hours (Table) 05/06/25 05/06/25 Range/Units 05:38 05:38 WBC 11.53 H (4.50-10.00) X 10*3/uL RBC 4.17 L (4.40-5.60) X 10*6/uL Hgb 12.9 L (13.0-17.0) g/dL Hct 39.2 L (39.6-50.0) % Immature Gran # 0.08 H (0.00-0.04) X 10*3/uL Neutrophils # 9.56 H (1.80-7.70) X 10*3/uL Eosinophils # 0 L (0.04-0.35) X 10*3/uL Anion Gap 12.50 H (4.00-12.00) mmol/L BUN/Creatinine Ratio 21.00 H (12.00-20.00) Ratio Glucose 132 H (70-110) mg/dL Total Bilirubin 0.2 L (0.3-1.2) mg/dL Total Protein 6.1 L (6.2-8.2) g/dL Assessment and Plan Assessment: TIA History of hypertension History hyperlipidemia Monitor vital signs Monitor CBC Monitor CMP Continue telemetry monitoring Ordered neurochecks Ordered lipid panel Order HbA1c level Ordered 2D echo Start aspirin Resume home meds Consult PT and OT Consult neurology Labs and medication were reviewed.. Continue same treatment. Continue with symptomatic treatment. Resume home medication. Monitor labs and vitals. DVT and GI prophylaxis. Further recommendations as per clinical course of the patient
[2025-05-07 07:28] VITALS: BP 144/73; PULSE 65; RESP 17; TEMP 97.6
--- NOTE | 2025-05-07 12:22 | P.PN ---
Subjective Progress Note Date: 05/07/25 I am following-up with the patient and he states he is doing better. Denies any new neurological issues. Objective - Vital Signs Vital signs: Vital Signs Temp 97.6 F 05/07/25 07:00 Pulse 65 05/07/25 07:00 Resp 17 05/07/25 07:00 BP 144/73 05/07/25 07:00 Pulse Ox 94 L 05/07/25 09:49 FiO2 21 05/07/25 09:49 Intake & Output 05/06/25 05/07/25 05/07/25 18:59 06:59 18:59 Other: Voiding Method Toilet Toilet Toilet # Voids 2 2 - Exam GENERAL: The patient is lying in bed and is not in acute distress. NEUROLOGICAL: Higher mental function: The patient is awake, alert, oriented to self, place and time. Patient is following commands. No aphasia and no neglect. Cranial nerves: The pupils are round, equal and reactive to light and accommodation. Visual armenta are full to confrontation throughout. Extraocular movement is intact no nystagmus is noted. Facial sensation is normal to touch throughout. The facial strength is left lower facial weakness. Hearing is severely decreased bilaterally to hand rub (chronic). Tongue is midline and moved [id number] without any difficulty. No dysarthria is noted. Shoulder shrug is normal bilaterally. Motor: The strength is 5 over 5 throughout. Normal tone and bulk. Cerebellum: Normal finger to nose bilaterally. Sensation: Sensation is normal to touch throughout. Some of the workup during this hospital visit consisted of: I reviewed the lab workup CT of the head is reported as no acute intracranial process. 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 I personally reviewed the CT and I agree with the report. CT angiography of the head and neck is reported as no flow-limiting stenosis bilateral carotid bifurcation. Normal [place] [facility] [place]. 2D echo: EF 55%. basel inferior and interoseptal hypokinesis MRI Brain: Some subtle right knight radiata uptake maybe some leonor-infact ischemia. - Labs CBC & Chem 7: 05/06/25 05:38 05/06/25 05:38 Assessment and Plan Assessment: This is an 84-year-old gentleman who presents emergency department because of speech difficulty left facial droop and left arm weakness. Symptoms began around 8:00 in the morning and prior to that he was doing well. Acute ischemic stroke (left facial droop and speech difficulty--speech improved). MRI Brain Some subtle right knight radiata uptake maybe some leonor- infact ischemia. Patient has multiple risk factor such as hypertension, prior stroke, age and his significant nicotine use in which he smokes about 3 packs/day Hypertension History of prior stroke about 13 years ago and on the CT it seems that the patient has old lacunar on the right knight radiata Significant nicotine use (smoke 3PPD) Plan: Patient was given aspirin 325 once and resumed on his home dose of aspirin 81 mg daily. In addition I start the patient on Plavix 75 mg daily. Recommend dual antiplatelets for 21 days and after that stop ASA since failed but continue Plavix. He was started on Lipitor 20 mg nightly by the primary team For hypokinesis on 2D echo, recommend to follow-up with outpatient drilling foreman. Continue neurochecks Cardiac monitoring PT OT and TREE WARDEN are consulted Patient was counseled on tobacco cessation For the rest of the medical management the primary team. For DVT prophylaxis the patient is on subcu heparin Upon discharge, recommend the patient to follow-up with outpatient neurologist within 2-3 weeks. Patient is clear from neurological perspective. Time with Patient: Less than 30
== END 2025-05-07 11:48 | disposition home or self-care (01) ==
LOC: EC 09:50 → 6NMEDSUR 13:10
PROVIDERS: ADMIT Internal Medicine; ATTEND Internal Medicine
DX: I63.9 Cerebral infarction, unspecified (principal); I10 Essential (primary) hypertension; E78.5 Hyperlipidemia, unspecified; F17.210 Nicotine dependence, cigarettes, uncomplicated; Z79.82 Long term (current) use of aspirin; Z79.1 Long term (current) use of non-steroidal anti-inflammatories (NSAID); Z79.899 Other long term (current) drug therapy; Z88.1 Allergy status to other antibiotic agents; Z91.041 Radiographic dye allergy status; Z91.048 Other nonmedicinal substance allergy status; Z86.73 Personal history of transient ischemic attack (TIA), and cerebral infarction without residual deficits; Z71.6 Tobacco abuse counseling
CPT/HCPCS: 96372 ×3; 96374; 96375; 99285; 36415; 94760 ×2; 93005; 93306; 80061; 80053 ×2; 82550; 85025 ×2; 85610; 85730; 83036; 71046; 70496; 70450; 70498; 70551; G0378 ×3; J1200; J1644 ×3; Q9967; J2919; J1308

== ENCOUNTER 2025-05-08 08:02 | Emergency (ER) | payer MEDICARE ==
[2025-05-08 08:22] LABS: Glucose,Whole Blood 108 mg/dL (70-110)
--- NOTE | 2025-05-08 08:37 | ED ---
General Adult HPI - General Chief complaint: Neuro Symptoms/Deficit Stated complaint: Stroke like symptoms Time Seen by Provider: 05/08/25 08:04 Source: patient, EMS Mode of arrival: EMS Limitations: no limitations - History of Present Illness Initial comments: Dictation was produced using [employer]UB[employer] dictation software. please excuse any grammatical, word or spelling errors. Chief Complaint: 84-year-old male with slurred speech and facial droop History of Present Illness: Patient is 84-year-old male presents emergency department for episode this morning of several minutes of slurred speech and facial droop. Patient states that his symptoms resolved. He was seen here in the emergency department admitted 3 days ago for the same complaint. Seen by neurology. Ultimately was discharged. Patient had MRI at that time that showed leonor-infarct ischemia. Patient feels at baseline at the bedside. The ROS documented in this emergency department record has been reviewed and confirmed by me. Those systems with pertinent positive or negative responses have been documented in the HPI. All other systems are other negative and/or noncontributory. - Related Data Home Medications Medication Instructions Recorded Confirmed Losartan/Hydrochlorothiazide 1 tab PO DAILY 07/14/14 05/05/25 [Losartan-Hctz 100-25 mg Tab] Multivitamin/Iron/Folic Acid 1 tab PO DAILY 07/14/14 05/05/25 [Centrum Complete Multivit Tab] Simvastatin [Zocor] 40 mg PO HS 07/14/14 05/05/25 Fish Oil/Dha/Epa [Fish Oil 1,200 1 cap PO BID 05/05/25 05/05/25 mg Fish Oil] Glucosam/Chond/Hyalu/Cf Borate 1 tab PO BID 05/05/25 05/05/25 [Move Free Joint Health Tablet] Naproxen Sodium [Aleve] 220 mg PO DAILY 05/05/25 05/05/25 Previous Rx's Medication Instructions Recorded Aspirin 81 mg PO DAILY 21 Days #21 tab 05/07/25 Clopidogrel [Plavix] 75 mg PO DAILY 30 Days #30 tab 05/07/25 Allergies Allergy/AdvReac Type Severity Reaction Status Date / Time bacitracin Allergy Rash/Hives Verified 05/08/25 08:07 [From Neosporin ([id number])] Iodinated Contrast Media Allergy Unknown Verified 05/08/25 08:07 iodine Allergy Unknown Verified 05/08/25 08:07 neomycin Allergy Rash/Hives Verified 05/08/25 08:07 [From Neosporin ([id number])] polymyxin B Allergy Rash/Hives Verified 05/08/25 08:07 [From Neosporin ([id number])] Review of Systems ROS Statement: Those systems with pertinent positive or pertinent negative responses have been documented in the HPI. ROS Other: All systems not noted in ROS Statement are negative. 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 History of Any Multi-Drug Resistant Organisms: None Reported Past Surgical History: Hernia Repair Past Anesthesia/Blood Transfusion Reactions: No Reported Reaction Past Psychological History: No Psychological Hx Reported Smoking Status: Current every day smoker Past Alcohol Use History: Rare Past Drug Use History: None Reported - Past Family History Father Family Medical History: CVA/TIA Additional Family Medical History / Comment(s): AT AGE 88- STROKE Mother Family Medical History: Diabetes Mellitus, Hypertension, Myocardial Infarction (ND) Additional Family Medical History / Comment(s): AT AGE 99- CARDIAC General Exam - General Exam Comments Initial Comments: PHYSICAL EXAM: General Impression: Alert and oriented x3, not in acute distress HEENT: Normocephalic atraumatic, extra-ocular movements intact, pupils equal and reactive to light bilaterally, mucous membranes moist. Cardiovascular: Heart regular rate and rhythm Chest: Able to complete full sentences, no retractions, no tachypnea Abdomen: abdomen soft, non-tender, non-distended, no organomegaly Musculoskeletal: Pulses present and equal in all extremities, no peripheral edema Motor: no focal deficits noted Neurological: CN II-XII grossly intact, no focal motor or sensory deficits noted Skin: Intact with no visualized rashes Psych: Normal affect and mood Limitations: no limitations Course Vital Signs 05/08/25 05/08/25 08:03 09:02 Temperature 97.6 F Pulse Rate 69 60 Respiratory 16 16 Rate Blood Pressure 126/68 137/71 O2 Sat by Pulse 96 94 L Oximetry Medical Decision Making - Medical Decision Making Was pt. sent in by a medical professional or institution (, PA, PUBLIC AREA SUPERVISOR, urgent care, hospital, or snf...) When possible be specific @ -No Did you speak to anyone other than the patient for history (EMS, parent, family, police, friend...)? What history was obtained from this source @ -Some history obtained from family as described above Did you review nursing and triage notes (agree or disagree)? Why? @ -I reviewed and agree with nursing and triage notes Were old charts reviewed (outside hosp., previous admission, EMS record, old EKG, old radiological studies, urgent care reports/EKG's, snf records)? Report findings @ -MRI results from 2 days ago was reviewed showing several right knight radiata leonor-infarct ischemia Differential Diagnosis (chest pain, altered mental status, abdominal pain women, abdominal pain men, vaginal bleeding, musculoskeletal, weakness, fever, dyspnea, syncope, headache, dizziness, GI bleed, back pain, seizure, CVA, palpatations, mental health)? @ - Differential CVA: Ischemic stroke, hemorrhagic stroke, brain tumor, atypical migraine, Wernicke's encephalopathy, seizure, multiple sclerosis, meningitis, encephalitis, hypoglycemia, Guillain-Bella, electrolytes disturbance, myasthenia gravis.... This is not meant to be an all-inclusive list EKG interpreted by me (3pts min.). @ -My EKG interpretation: Ventricular rate 61, sinus rhythm, GA 169, QRS 97, QTc 412. No GA prolongation, no QTC prolongation, no ST or T-wave changes noted. EKG compared to default value showing no changes. Overall, this EKG is unremarkable X-rays interpreted by me (1pt min.). @ -None done CT interpreted by me (1pt min.). @ -CT brain shows no acute processes U/S interpreted by me (1pt. min.). @ -None done What testing was considered but not performed or refused? (CT, X-rays, U/S, labs)? Why? @ -None What meds were considered but not given or refused? Why? @ -None Was smoking cessation discussed for >3mins.? @ -No Were there social determinants of health that impacted care today? How? (Homelessness, low income, unemployed, alcoholism, drug addiction, transportation, low edu. Level, literacy, decrease access to med. care, custodial, rehab)? @ -No Was there de-escalation of care discussed even if they declined (Discuss DNR or withdrawal of care, Hospice)? DNR status @ -No What co-morbidities impacted this encounter? (DM, HTN, Smoking, COPD, CAD, Cancer, CVA, ARF, Chemo, Hep., AIDS, mental health diagnosis, sleep apnea, morbid obesity)? @ -None Was patient admitted / discharged? Hospital course, mention meds given and route, prescriptions, significant lab abnormalities, going to OR and other pertinent info. @ -84-year-old male presents with TIA symptoms was recently admitted for CVA workup was found to have CVA on MRI. Vital signs are stable. Patient is asymptomatic at the bedside. CT brain is nonacute. Patient has no neurodeficits. Labs unremarkable. Patient currently on all appropriate medications. He had completed full CVA workup. Patient has outpatient follow- up with neurology. Patient be discharged. Return precautions discussed. Did you discuss the management of the patient with other professionals (professionals i.e. , PA, PUBLIC AREA SUPERVISOR, lab, RT, psych nurse, social services designee, top hat body maker, teacher, driver's license reviewing officer, case folder)? Give summary @ -No Was critical care preformed (if so, how long)? @ -No Undiagnosed new problem with uncertain prognosis? @ -No Drug Therapy requiring intensive monitoring for toxicity (Heparin, Nitro, Insulin, Cardizem)? @ -No Were any procedures done? @ -No Diagnosis/symptom? Acute, or Chronic, or Acute on Chronic? Uncomplicated (without systemic symptoms) or Complicated (systemic symptoms)? @ -TIA Side effects of treatment? @ -No Exacerbation, Progression, or Severe Exacerbation? @ -No Poses a threat to life or bodily function? How? (Chest pain, USA, ND, pneumonia, PE, COPD, DKA, ARF, appy, cholecystitis, CVA, Diverticulitis, Homicidal, Suicidal, threat to staff... and all critical care pts) @ -yes - Lab Data Result diagrams: 05/08/25 08:38 05/08/25 08:38 Lab Results 05/08/25 05/08/25 05/08/25 Range/Units 08:19 08:38 08:38 WBC 9.17 (4.50-10.00) 10*3/uL RBC 4.72 (4.40-5.60) 10*6/uL Hgb 15.2 (13.0-17.0) g/dL Hct 44.2 (39.6-50.0) % MCV 93.6 (80.0-97.0) fL MCH 32.2 H (27.0-32.0) pg MCHC 34.4 (32.0-37.0) g/dL Plt Count 159 (140-440) 10*3/uL MPV 10.0 (9.5-12.2) fL Immature Gran % (Auto) 0.4 % Neutrophils % 69.9 % Lymphocytes % 18.0 % Monocytes % 8.5 % Eosinophils % 2.9 % Basophils % 0.3 % Immature Gran # 0.04 (0.00-0.04) 10*3/uL Neutrophils # 6.40 (1.80-7.70) 10*3/uL Lymphocytes # 1.65 (0.90-5.00) 10*3/uL Monocytes # 0.78 (0.20-1.00) 10*3/uL Eosinophils # 0.27 (0.04-0.35) 10*3/uL Basophils # 0.03 (0.00-0.10) 10*3/uL Sodium 136 L (137-145) mmol/L Potassium 4.5 (3.5-5.1) mmol/L Chloride 100 (98-107) mmol/L Carbon Dioxide 28 (22-30) mmol/L Anion Gap 8 mmol/L BUN 24 H (9-20) mg/dL Creatinine 0.94 (0.66-1.25) mg/dL Est GFR (CKD-EPI)AfAm 86 (>60 ml/min/1.73 sqM) Est GFR (CKD-EPI)NonAf 75 (>60 ml/min/1.73 sqM) Glucose 103 H (74-99) mg/dL POC Glucose (mg/dL) 108 (70-110) mg/dL POC Glu Felt Checker ID Ca Ralph Calcium 9.8 (8.4-10.2) mg/dL Disposition Clinical Impression: TIA (transient ischemic attack) Disposition: HOME SELF-CARE Condition: Fair Instructions (If sedation given, give patient instructions): Stroke (DC) Is patient prescribed a controlled substance at d/c from ED?: No Referrals: Sujatha Morrison MD [Primary Care Provider] - 1-2 days Time of Disposition: 10:04
[2025-05-08 08:51] LABS: Basophils # (A) 0.03 10*3/uL (0.00-0.10); Basophils % (A) 0.3 %; Eosinophils # (A) 0.27 10*3/uL (0.04-0.35); Eosinophils % (A) 2.9 %; HCT 44.2 % (39.6-50.0); HGB 15.2 g/dL (13.0-17.0); Lymphocytes # (A) 1.65 10*3/uL (0.90-5.00); MCH 32.2 pg (27.0-32.0); MCHC 34.4 g/dL (32.0-37.0); MCV 93.6 fL (80.0-97.0); Monocytes # (A) 0.78 10*3/uL (0.20-1.00); Monocytes % (A) 8.5 %; Neutrophils % (A) 69.9 %; Platelet Count 159 10*3/uL (140-440); RBC 4.72 10*6/uL (4.40-5.60); RDW 12.9 % (11.5-14.5); WBC 9.17 10*3/uL (4.50-10.00)
--- NOTE | 2025-05-08 09:09 | CT ---
EXAMINATION TYPE: CT brain wo con DATE OF EXAM: 05/08/2025 8:53 AM COMPARISON: 05/05/2025 CT, MRI 05/16/2025. CLINICAL INDICATION: Male, 84 years old with history of tia, Stroke like symptoms. States he had 2 episodes at home where he developes facial droop, unsteady gait and L sided weakness, resolved within minutes both times Seen on thursday for the same thing, diagnose d with TIA. TECHNIQUE: CT of the brain is performed utilizing 3 mm thick sections through the posterior fossa and 3 mm thick sections through the remaining calvarium. Study is performed within 24 hours of arrival to the hospital. Contrast used: mL of , (none if empty) CT DLP: 1156.4 mGycm, Automated exposure control for dose reduction was used. FINDINGS: No abnormal hyperdensity is present to suggest an acute intracranial hemorrhage. No mass lesion is evident. No acute infarcts are evident. Mild periventricular white matter hypodensity is present, length and i s chronic white matter ischemic changes. Chronic changes in the right knight radiata are stable Ventricles and sulci are prominent for the patient age. Paranasal sinuses and mastoid air cells within the [id number] are clear. IMPRESSION: 1. No acute intracranial process. Follow up MRI can be performed as clinically indicated. Atrophy wi th chronic appearing periventricular white matter ischemic changes, stable from prior [facility], , 05/08/2025 9:07 AM
[2025-05-08 09:15] LABS: African American GFR (CKD) 86 (>60 ml/min/1.73 sqM); Anion Gap 8 mmol/L; Blood Urea Nitrogen 24 mg/dL (9-20); Calcium 9.8 mg/dL (8.4-10.2); Carbon Dioxide 28 mmol/L (22-30); Chloride 100 mmol/L (98-107); Glucose 103 mg/dL (74-99); Non-African American GFR(CKD) 75 (>60 ml/min/1.73 sqM); Sodium 136 mmol/L (137-145)
[2025-05-08 09:16] LABS: Potassium 4.5 mmol/L (3.5-5.1)
[2025-05-08 11:03] VITALS: BP 173/87; PULSE 59; RESP 18; TEMP 97.2
== END 2025-05-08 10:50 | disposition home or self-care (01) ==
LOC: EC 08:02
DX: G45.9 Transient cerebral ischemic attack, unspecified (principal); F17.200 Nicotine dependence, unspecified, uncomplicated; Z86.73 Personal history of transient ischemic attack (TIA), and cerebral infarction without residual deficits; Z91.041 Radiographic dye allergy status; Z88.8 Allergy status to other drugs, medicaments and biological substances
CPT/HCPCS: 36415; 70450; 80048; 85025; 93005; 99285